=== PATIENT | female | born 1960 | race African-American/Black ===

== ENCOUNTER → 2017-05-29 | Outpatient (CLI) | payer BC ==
[~2017-05-29] MED LIST: AMLO5TAB2 PO; ASPI-496 PO; ATOR20TA9 PO; METF500T9 PO; OMEP20TA62 PO
[2017-05-29 13:47] LABS: ASPARTATE AMINO TRANSFERASE 18 U/L (15-37); BLOOD UREA NITROGEN 9 mg/dL (7-18)
== END | disposition home or self-care (01) ==
LOC: STAR 12:28
PROVIDERS: ATTEND Obstetrics & Gynecology Female Pelvic Medicine and Reconstructive Surgery
DX: Z01.818 Encounter for other preprocedural examination (principal); R10.2 Pelvic and perineal pain; N81.10 Cystocele, unspecified; N81.6 Rectocele; N39.3 Stress incontinence (female) (male); N94.10 Unspecified dyspareunia
CPT/HCPCS: 36415; 80053; 93005

== ENCOUNTER 2017-06-03 10:09 | Day surgery (SDC) | payer BC ==
[~2017-06-03] VITALS: Ht 160 cm; Wt 61.1 kg
[~2017-06-03 10:09] MED LIST changes: +BUPIVACAINE/PF 0.25% ONE; +NEOMY/POLYMYXIN B GU IRR. 1 ML IRRIG ONE
[2017-06-03 10:37] VITALS: BP 151/89
[2017-06-03] MEDS ORDERED: LACTATED RINGERS 1,000 ML IV SCH (10:40)
[2017-06-03] MEDS ORDERED: MIDAZOLAM 1 MG/ML, 2ML ONE (10:43)
[2017-06-03] MEDS ORDERED: FENTANYL PF 100 MCG/2ML ONE ×2 (10:43→13:05)
[2017-06-03] MEDS ORDERED: LIDOCAINE-MPF 2% ,5ML ONE (10:45)
[2017-06-03] MEDS ORDERED: PROPOFOL 10 MG/ML, 20ML ONE (10:45)
[2017-06-03] MEDS ORDERED: KETAMINE 10 MG/ML, 20ML ONE (11:45)
[2017-06-03] MEDS ORDERED: CEFOTETAN 2 GM ONE (11:45)
[2017-06-03] MEDS ORDERED: DEXAMETHASONE 4 MG/ML, 1ML ONE ×2 (11:51)
[2017-06-03] MEDS ORDERED: KETOROLAC 30 MG/1 ML ONE (11:51)
[2017-06-03] MEDS ORDERED: ONDANSETRON 2MG/ML, 2ML ONE ×3 (11:51)
[2017-06-03] MEDS ORDERED: LABETALOL 5MG/ML, 20ML IV PRN (12:00)
[2017-06-03] MEDS ORDERED: hydrALAzine 20 MG/ML, 1ML IV PRN (12:00)
[2017-06-03] MEDS ORDERED: MEPERIDINE/PF 25MG/0.5ML IVPush PRN (12:00)
[2017-06-03] MEDS ORDERED: ACETAMINOPHEN 325 MG TABLET PO PRN (12:00)
[2017-06-03] MEDS ORDERED: ONDANSETRON 2MG/ML, 2ML IVPush PRN (12:00)
[2017-06-03] MEDS ORDERED: PROMETHAZINE 25 MG/ML, 1ML IV PRN (12:00)
[2017-06-03] MEDS ORDERED: OXYcodone 5 MG/5 ML ORAL.SOL UDC PO PRN (12:00)
[2017-06-03] MEDS ORDERED: HYDROmorphone 1 MG/ML, 1ML IV PRN (12:00)
[2017-06-03] MEDS ORDERED: MEPERIDINE/PF 50 MG/ML ONE (12:26)
[2017-06-03] MEDS ORDERED: OXYcodone 5 MG/5 ML ORAL.SOL UDC ONE (13:05)
[2017-06-03] MEDS ORDERED: ACETAMINOPHEN 650 MG/20.3 ML UDC ONE (13:05)
[2017-06-03] MEDS: FENTANYL PF 100 MCG/2ML IV PRN ×2 (13:10→13:20)
[2017-06-03] MEDS ORDERED: DIPHENHYDRAMINE 50 MG/ML, 1ML ONE (13:36)
[2017-06-03] MEDS ORDERED: DIPHENHYDRAMINE 50 MG/ML, 1ML IVPush ONE (14:00)
== END 2017-06-03 15:30 ==
LOC: OUT 10:09
PROVIDERS: ATTEND Obstetrics & Gynecology Female Pelvic Medicine and Reconstructive Surgery
DX: N81.89 Other female genital prolapse (principal); N39.3 Stress incontinence (female) (male); N94.10 Unspecified dyspareunia; N81.5 Vaginal enterocele; I10 Essential (primary) hypertension; E11.9 Type 2 diabetes mellitus without complications; Z87.39 Personal history of other diseases of the musculoskeletal system and connective tissue; Z98.890 Other specified postprocedural states; Z90.710 Acquired absence of both cervix and uterus
CPT/HCPCS: 57265; 57288; 82962; C1771; J1100; J1200; J1885; J2250; J2405; J2704; J3010; J3490; J7120; S0074